=== PATIENT | male | born 1965 | race Caucasian/White ===

== ENCOUNTER 2016-08-22 07:36 | Day surgery (SDC) | payer BC ==
[2016-08-21 15:35] VITALS: BMI 27.8
--- NOTE | 2016-08-22 08:25 | HP ---
Satellite H - Chief Complaint Chief Complaint: right shoulder pain - Past Medical History Allergies/Adverse Reactions: Allergies Allergy/AdvReac Type Severity Reaction Status Date / Time erythromycin base Allergy Severe Rash Verified 08/21/16 15:37 - Current Medications Current Medications: Home Medications Medication Instructions Recorded Budesonide/Formeterol Fumarate 1 inh PO BID 08/21/16 [SYMBICORT 80/4.5mcg -] Citalopram Hydrobromide [Celexa -] 30 mg PO DAILY 08/21/16 Clonazepam [Klonopin -] 0.5 mg PO PRN 08/21/16 Hydrocodone/Acetaminophen [[place] 1 - 2 each PO Q6H #40 tablet MDD 8 08/22/16 5-325 Tablet] Satellite Physical Exam - Physical Examination Vital Signs: Vital Signs Period Temp Pulse Resp BP Sys/[place]man Pulse Ox Last 24 Hr 98.3 F-98.3 F 81-81 20-20 112-112/57-57 99 General Appearance: Well Nourished, Well Developed, Alert & Oriented x3 ENT: Clear Lung: Normal air movement Heart: Regular rate & rhythm Extremities: Other (right shoulder- + ttp, decr rom, + neer,+ storm, nvi MRI + partial RCT) Neurological: Intact, Alert, Oriented Satellite Impression/Plan - Impression/Plan Impression: right shoulder impingement, partial RCT Operative Procedure: right shoulder arthroscopy with SAD and possible RCR Date to be Performed: 08/22/16
[2016-08-22] MEDS ORDERED: ROPIVACAINE HCL 0.5% 30ML VIAL ONE (08:28)
[2016-08-22] MEDS ORDERED: MIDAZOLAM HCL 2 MG/2 ML SINGLE DOSE VIAL ONE ×2 (08:29)
[2016-08-22] MEDS ORDERED: PROPOFOL 20 ML ONE ×2 (10:21)
[2016-08-22] MEDS ORDERED: ROCURONIUM BROMIDE 50 MG/5 ML VIAL ONE (10:21)
[2016-08-22] MEDS ORDERED: ceFAZolin SODIUM 1 GM VIAL IVPB ONE (10:33)
[2016-08-22] MEDS ORDERED: ePHEDrine SULFATE 50 MG/1 ML AMPULE ONE (10:39)
[2016-08-22] MEDS ORDERED: ceFAZolin SODIUM 1 GM VIAL ONE (10:39)
[2016-08-22] MEDS ORDERED: NEOSTIGMINE METHYLSULFATE 0.5 MG/ML - 10 ML MDV ONE (11:17)
[2016-08-22] MEDS ORDERED: GLYCOPYRROLATE 0.2 MG/1 ML VIAL ONE (11:17)
--- NOTE | 2016-08-22 11:31 | OP ---
Operative Note - Note: Operative Date: 08/22/16 Pre-Operative Diagnosis: right shoulder impingement, ACJ OA Operation: right shoulder arthroscopy, subacromial decompression, distal clavicle excision Post-Operative Diagnosis: Same as Pre-op Surgeon: Scott Carr Anesthesiologist/MECHANICAL ENGINEERING DIRECTOR: Le Roca Anesthesia: General, Local Specimens Removed: shavings Estimated Blood Loss (mls): 50 Drains, Volume Out (mls): 0 Blood Volume Replaced (mls): 0 Fluid Volume Replaced (mls): 500 Operative Report Dictated: Yes
[2016-08-22 12:11] VITALS: TEMP 97.7
--- NOTE | 2016-08-22 12:16 | OP ---
DATE OF OPERATION: 08/22/2016 PREOPERATIVE DIAGNOSES: Right shoulder subacromial impingement and acromioclavicular joint arthritis. POSTOPERATIVE DIAGNOSES: Right shoulder subacromial impingement and acromioclavicular joint arthritis. PROCEDURE: Right shoulder arthroscopy, subacromial decompression, distal clavicle excision. SURGEON: Scott Marcus MD FUND CONTROLLER: None. ANESTHESIOLOGIST: Le Roca MD ANESTHESIA: Right interscalene block, LMA anesthesia. DRAINS: None. COMPLICATIONS: None. BLOOD LOSS: 50 mL. BLOOD GIVEN: None. FLUID REPLACEMENT: Plasmalyte, 500 mL. INDICATIONS: The patient is a 51-year-old male with a preoperative diagnosis of right shoulder impingement syndrome and AC joint arthritis. We went over the potential risks, complications, alternatives, benefits of surgery versus nonsurgical treatment. The patient was brought to the operating room. Peripheral IV placed. IV sedation given. Ancef 1 g IV was given. The right interscalene block was performed. LMA anesthesia was induced. Styrofoam was placed around the head. Ample padding throughout. He was placed into the beach-chair position. The right upper extremity was prepped and draped in sterile fashion. Bony landmarks were marked out with a marking pen. The posterior portal established with a No. 15 scalpel blade and a diagnostic glenohumeral arthroscopy was performed. The patient's anatomy from the joint side looked fine. The biceps tendon, humeral head, glenoid, and undersurface of the rotator cuff all looked absolutely fine. The arthroscope was irrigated and washed out. Next, our attention turned to the subacromial space. The patient had a lot of inflammatory bursitis. A lateral portal was established under direct visualization using a spinal needle and a No. 15 scalpel blade and then a Green cannula was introduced into the subacromial space. Extensive debridement was done with the ArthroCare wand. After the soft tissue bursectomy, this revealed a very large subacromial bony spur and a moderate-sized subclavicular bony spur. Both were taken down with the 5.5-mm oval bur, fine tuned in reverse, and then cleaned up with a shaver. After the subacromial bony decompression and distal clavicle excision, the area was copiously irrigated and washed out. All debris removed and the top surface of the rotator cuff visualized. The top surface of the rotator cuff looked fine. There were no tears whatsoever. The area was copiously irrigated and washed out. All instrumentation removed. The arthroscopy portals were closed with 3-0 nylon sutures. The area was then washed and dried, covered with Aquacel. A sling was applied to the right arm. He was taken down out of the beach-chair position, extubated. There were no complications during the case and he was brought to the ambulatory recovery room in stable condition. Total operative time was about 45 minutes. SCOTT MARCUS M.D. [id number]
[2016-08-22] MEDS ORDERED: ONDANSETRON 4 MG/2 ML VIAL IVPUSH PRN (13:50)
[2016-08-22] MEDS ORDERED: oxyCODONE HCL 5 MG TABLET PO PRN (13:50)
[2016-08-22] MEDS ORDERED: LACTATED RINGERS SOLUTION 1,000 ML IV SCH (14:00)
[2016-08-22 16:53] VITALS: BP 126/82; PULSE 80
--- NOTE | 2016-08-23 13:29 | PATH ---
Surgical Pathology Report Patient Name: MARIA TERESA MAS [facility]. Rec. #: [id number] /Age/Gender: 1965 (Age: 51) / M Account: [id number] Location: [facility] SURGICAL Taken: 08/22/2016 Received: 08/22/2016 Reported: 08/23/2016 Physicians: Scott Carr M.D. Specimen(s) Received RIGHT SHOULDER ARTHROSCOPY SUBACROMIAL DECOMPRESSION, DISTAL CLAVICLE Clinical History Right shoulder impingement Final Diagnosis RIGHT SHOULDER, ARTHROSCOPIC SHAVING: PORTIONS OF SYNOVIUM, CARTILAGE, SKELETAL MUSCLE AND BONE CONSISTENT WITH ARTHROSCOPIC SHAVINGS. Electronically Signed Blane Banks M.D. Gross Description Received in formalin, labeled "right shoulder shaving," is a 4.0 x 4.0 x 0.5 cm. aggregate of hood-yellow soft tissue fragments. A scheduling representative portion is submitted in one cassette. /08/22/201608/22/2016
== END 2016-08-22 15:00 | disposition home or self-care (01) ==
LOC: JASU-SURG 07:36
PROVIDERS: ATTEND Orthopaedic Surgery
PROC: 0RNJ4ZZ Release Right Shoulder Joint, Percutaneous Endoscopic Approach (ICD-10-PCS; 2016-08-22)
PROC: 0PB94ZZ Excision of Right Clavicle, Percutaneous Endoscopic Approach (ICD-10-PCS; principal; 2016-08-22 10:00)
DX: M75.41 Impingement syndrome of right shoulder (principal); M13.811 Other specified arthritis, right shoulder
CPT/HCPCS: 88304-TC; 94760